=== PATIENT | male | born 1975 | race Caucasian/White ===

== ENCOUNTER 2025-04-25 18:03 | Inpatient (IN) ==
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
[2025-04-25] MEDS: ACETAMINOPHEN 1,000 MG/100 ML VIAL IV STA (18:39)
[2025-04-25] MEDS: SODIUM CHLORIDE 0.9% 1,000 ML IV ONE (18:40)
[2025-04-25] MEDS: OPTIRAY 320 100ml IV ONE (18:41)
[2025-04-25 18:42] LABS: Hematocrit (blood only) 43.6 % (42.0-52.0); Hemoglobin 15.6 g/dl (14.0-18.0); Immature Granulocytes # (auto) 0.07 K/uL (0.01-0.20); Immature Granulocytes % (auto) 0.4 %; Mean Corpuscular Hemoglobin 32.2 pg (25.0-34.0); Mean Corpuscular Volume 89.9 fL (80.0-100.0); Platelet Count 267 K/uL (130-400); RDW Standard Deviation 38.7 fL (36.4-46.3); Red Blood Count 4.85 M/uL (4.70-6.10); White Blood Count 16.04 K/ul (4.8-10.8)
--- NOTE | 2025-04-25 18:42 | CT Scan Report ---
Clinical History: Trauma. Technique: Axial computed tomography images were obtained of the brain from the vertex to the skull base without intravenous contrast. Findings: There is no sign of intracranial hemorrhage. There is normal berrios-white matter differentiation with no sign of acute or old infarction. No midline shift or other form of herniation is identified. There is no hydrocephalus. No obvious mass lesion is seen on this noncontrast examination. The visualized portions of the orbits and paranasal sinuses appear unremarkable. The mastoid air cells appear clear Impression: Unremarkable noncontrast CT of the brain Electronically signed by Alton Henley 04-25-2025 6:41 PM
--- NOTE | 2025-04-25 18:51 | CT Scan Report ---
Clinical history: Trauma Technique: Axial computed tomography images were obtained of the cervical spine without intravenous contrast. Sagittal and coronal reconstructions were obtained Findings: No definite fracture is identified. A lucency within the left aspect of the C2 vertebral body on image 20 of the coronal reconstructions may be due to a prominent nutrient vessel. No listhesis is seen. No focal osseous lesion is evident. The atlantoaxial articulation appears unremarkable. At C2-3, no disc herniation is identified. There is no spinal stenosis. The neural foramen are patent At C3-4, there is spinal stenosis due to a disc bulge and a central disc protrusion. There is left greater than right neural foramen narrowing that may affect the left C4 nerve root At C4-5, there is spinal stenosis due to a disc bulge and a central disc protrusion. There is bilateral neural foramen narrowing that may affect the exiting C5 nerve roots At C5-6, there is mild spinal stenosis due to a disc bulge and a suspected central to right paracentral disc protrusion. There is right neural foramen narrowing that may affect the right C6 nerve root At C6-7, there is a mild disc bulge. There is no spinal stenosis. The neural foramen are patent At C7-T1,no disc herniation is identified. There is no spinal stenosis. The neural foramen are patent The lung apices appear clear. The visualized soft tissues of the neck appear unremarkable. No foreign body is seen There is intravascular air. There also appears to be some extraluminal air adjacent to the left clavicle Impression: 1. No definite cervical spine fracture 2. Pockets of air in the soft tissues adjacent to the left clavicle, which could be due to penetrating injury or other trauma. Chest CT could be obtained for further evaluation 3. Spinal stenosis from C3-4 through C5-6 4. Left C3-4, bilateral C4-5, and right C5-6 neural foramen narrowing, which may affect the exiting nerve roots ACT 112: Positive. There are findings on this exam that require communication between the performing entity and the patient following Patient Test Result Information Act ([place] ACT 112) guidelines. Electronically signed by Alton Henley 04-25-2025 6:50 PM
--- NOTE | 2025-04-25 18:54 | CT Scan Report ---
Clinical History: Trauma Technique: Axial computed tomography images were obtained of the abdomen and pelvis after the administration of intravenous contrast. No prior CT is available for comparison. Findings: The liver is overall of normal size, attenuation, and contour with no sign of cirrhosis or significant fatty infiltration. No liver mass lesion is seen. The portal vein is patent. The gallbladder appears unremarkable. No bile duct dilatation is noted. The spleen is of normal size. No focal splenic lesion is evident. The pancreas appears normal with no sign of acute or chronic pancreatitis and no mass lesion noted. The pancreatic duct is of normal caliber. The adrenal glands appear unremarkable. No definite renal or proximal ureteral calculi are seen on this contrast-enhanced study. There is no hydronephrosis or perinephric stranding. No renal mass lesion is identified. The aorta is of normal caliber. There are small lymph nodes in the central mesentery with mild surrounding haziness. This may be due to mesenteric panniculitis. No overt abdominal adenopathy is seen. The stomach appears normal. There is no sign of small bowel obstruction. The colon appears unremarkable. The appendix appears normal also. No free intraperitoneal fluid or air is identified. No distal ureteral or bladder calculi are seen. No bladder mass lesion is evident. The iliac arteries are of normal caliber. No pelvic adenopathy is noted. There are small bilateral inguinal hernias containing only fat. No fracture is identified. No focal osseous lesion is seen Impression: 1. No definite sign of abdominal organ injury after trauma 2. Suspected mesenteric panniculitis Electronically signed by Alton Henley 04-25-2025 6:54 PM
--- NOTE | 2025-04-25 18:58 | CT Scan Report ---
Clinical history: Trauma Technique: Axial computed tomography images were obtained of the chest after the administration of intravenous contrast Findings: There is a small left pneumothorax, approximately 5% in size. There is dependent subsegmental atelectasis in both lower lobes There is no pleural effusion or right pneumothorax. There is no sign of pulmonary fibrosis or other diffuse interstitial process. No endobronchial lesion is seen There is no mediastinal, hilar, or axillary adenopathy. The thoracic aorta appears unremarkable with no sign of aneurysm or dissection. There is no pericardial effusion There is an acute mildly displaced fracture of the left anterior second rib. There is a suspected nondisplaced fracture of the left anterior third rib. There is adjacent chest wall air Impression: 1. Small left pneumothorax 2. Acute fractures of the left second and third ribs, with adjacent chest wall air ACT 112: Positive. There are findings on this exam that require communication between the performing entity and the patient following Patient Test Result Information Act ([place] ACT 112) guidelines. Electronically signed by Alton Henley 04-25-2025 6:57 PM
[2025-04-25 18:59] LABS: Alanine Aminotransferase 23.0 U/L (7-52); Albumin Globulin Ratio 1.4 (0.9-2); Alkaline Phosphatase 63.0 U/L (34-104); Anion Gap 14.0 (3-11); Bilirubin,Total 1.0 mg/dl (0.2-1.0); Blood Urea Nitrogen 22.0 mg/dl (6-23); Calcium 9.9 mg/dl (8.6-10.3); Carbon Dioxide 25.0 mmol/L (21-32); Chloride 102.0 mmol/L (98-107); Creatine Kinase 266.0 U/L (30-223); Creatinine Clr Calc Pharmacy 67.5 ml/min; Globulin 3.4 gm/dl (2.5-4.0); Glucose 108.0 mg/dl (70-99(Fasting)); Lipase 23.0 U/L (11-82); Potassium 4.6 mmol/L (3.5-5.1); Sodium 141.0 mmol/L (136-145); Total Protein 8.0 gm/dl (6.0-8.3)
--- NOTE | 2025-04-25 19:01 | CT Scan Report ---
Clinical history: Trauma Technique: Axial computed tomography images were obtained of the thoracic spine without intravenous contrast. Sagittal and coronal reconstructions were obtained Findings: There is mild deformity of the anteroinferior aspect of the T7 vertebral body, with the loss of to 10% of the vertebral body height. No other definite fracture is identified. There is multilevel Schmorl's node formation. There is mild scoliosis. No listhesis is seen. No focal osseous lesion is evident. There is no definite sign of osteomyelitis No definite disc herniation is seen at any level. There is no apparent spinal stenosis or definite nerve root compression Impression: 1. Mild T7 compression fracture of indeterminate age 2. Scoliosis ACT 112: Positive. There are findings on this exam that require communication between the performing entity and the patient following Patient Test Result Information Act ([place] ACT 112) guidelines. Electronically signed by Alton Henley 04-25-2025 7:01 PM
--- NOTE | 2025-04-25 19:05 | CT Scan Report ---
Clinical history: Trauma Technique: Axial computed tomography images were obtained of the lumbar spine after the administration of intravenous contrast. Sagittal and coronal reconstructions were obtained Findings: No fracture is identified. There is 2 mm of retrolisthesis of L4 on L5. No focal osseous lesion is evident. There is no definite sign of osteomyelitis At L1-2, no disc herniation is identified. There is no spinal stenosis. The neural foramen are patent At L2-3, there is a mild disc bulge. There is no spinal stenosis. The neural foramen are patent At L3-4, there is a disc bulge without spinal stenosis. There is mild bilateral neural foramen narrowing At L4-5, there is mild spinal stenosis due to a disc bulge and a suspected central disc protrusion. There is mild bilateral neural foramen narrowing At L5-S1, there is a broad-based central to left paracentral disc protrusion. There is no spinal stenosis. There is mild bilateral neural foramen narrowing The visualized soft tissues of the abdomen and pelvis appear unremarkable Impression: 1. No definite lumbar spine fracture 2. Mild retrolisthesis at L4-5 3. Spinal stenosis at L4-5 ACT 112: Positive. There are findings on this exam that require communication between the performing entity and the patient following Patient Test Result Information Act ([place] ACT 112) guidelines. Electronically signed by Alton Henley 04-25-2025 7:04 PM
[2025-04-25 19:16] LABS: INR 1.0 (0.9-1.1); Partial Thromboplastin Time 23 Seconds (21-31); Prothrombin Time 11.1 Seconds (9.0-12.0)
--- NOTE | 2025-04-25 19:22 | XRay Report ---
One view of the pelvis is submitted for review. Findings: No fracture or dislocation is seen. No significant arthritic changes are noted. No other osseous abnormality is identified. There are no radiopaque foreign bodies. There is excreted contrast within the urinary bladder Impression: Unremarkable pelvic radiograph Electronically signed by Alton Henley 04-25-2025 7:21 PM
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
--- NOTE | 2025-04-25 21:39 | XRay Report ---
Exam(s): XR CXR 1 VIEW EXAM: XR Chest, 1 View CLINICAL HISTORY: Reason for exam: assess pneumothorax. TECHNIQUE: Frontal view of the chest. COMPARISON: 04/25/2025 at 6:01 p.m. FINDINGS: Lungs: Lungs are somewhat underinflated. No acute focal infiltrate or consolidation is seen. Pleural space: Unremarkable. No pneumothorax. Heart: Unremarkable. No cardiomegaly. Mediastinum: Unremarkable. Normal mediastinal contour. Bones/joints: Unremarkable. No acute fracture. IMPRESSION: Lungs are somewhat underinflated. No acute focal infiltrate or consolidation is seen. No pneumothorax identified. Electronically signed by: Mike Reyes MD 04/25/25 21:38 PM
[2025-04-25] MEDS ORDERED: ACETAMINOPHEN 325 MG TAB PO PRN (22:28)
[2025-04-25] MEDS: SODIUM CHLORIDE 0.9% 1,000 ML IV SCH (22:38)
[2025-04-25] MEDS: HYDROmorphone INJ 0.5 MG/0.5 ML SYR IV PRN (22:38)
[2025-04-26 05:44] LABS: Hematocrit (blood only) 38.3 % (42.0-52.0); Hemoglobin 13.2 g/dl (14.0-18.0); Immature Granulocytes # (auto) 0.03 K/uL (0.01-0.20); Immature Granulocytes % (auto) 0.3 %; Mean Corpuscular Hemoglobin 32.1 pg (25.0-34.0); Mean Corpuscular Volume 93.2 fL (80.0-100.0); Platelet Count 193 K/uL (130-400); RDW Standard Deviation 41.6 fL (36.4-46.3); Red Blood Count 4.11 M/uL (4.70-6.10); White Blood Count 11.00 K/ul (4.8-10.8)
[2025-04-26 05:59] LABS: Anion Gap 6.0 (3-11); Blood Urea Nitrogen 20.0 mg/dl (6-23); Calcium 8.3 mg/dl (8.6-10.3); Carbon Dioxide 27.0 mmol/L (21-32); Chloride 106.0 mmol/L (98-107); Creatinine Clr Calc Pharmacy 87.2 ml/min; Glucose 115.0 mg/dl (70-99(Fasting)); Magnesium 2.1 mg/dl (1.7-2.4); Potassium 4.5 mmol/L (3.5-5.1); Sodium 139.0 mmol/L (136-145)
--- NOTE | 2025-04-26 08:03 | XRay Report ---
EXAM: XR chest 1V portable CLINICAL HISTORY: pneumothorax TECHNIQUE: An X-ray image of the chest is obtained in 1 AP projection. COMPARISON: No prior studies are available for comparison. FINDINGS: Pulmonary Parenchyma: Thin crescent lucent area in the left lung apex, suspected to represent pneumothorax. Bilateral prominent vascular markings could be due to pulmonary congestion. No evidence of consolidation, collapse, or focal opacities. No pulmonary nodules are identified. Mild blunting of left CP angle could be due to mild pleural effusion or pleural thickening. Heart and Mediastinum: Heart size and shape are normal. No mediastinal widening or masses. No hilar or mediastinal lymphadenopathy. Bony Thorax: Bony thorax appears intact without fractures or deformities. Soft Tissues: Soft tissues overlying the chest wall are unremarkable. IMPRESSION: 1. Thin crescent lucent area in the left lung apex, suspected to represent pneumothorax. 2. Mild blunting of left CP angle could be due to mild pleural effusion or pleural thickening. Electronically signed by Jeffrey Liu 04-26-2025 08:03 AM
[2025-04-26] MEDS: ROSUVASTATIN CALCIUM 5 MG TAB PO SCH (08:32)
[2025-04-26] MEDS: CETIRIZINE HCL 10 MG TABLET PO SCH (08:32)
[2025-04-26] MEDS: DEXTROAMPHETAMINE/AMPHETAMIME IR 5 MG TAB PO SCH (08:33)
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
[2025-04-26] MEDS: MoRPHine SULFATE 2 MG/ML CARP IV PRN (10:55)
[2025-04-26] MEDS: IBUPROFEN 600 MG TAB PO SCH (10:55)
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
[2025-04-26] MEDS: LIDOCAINE 5% 1 PATCH TD SCH (12:02)
--- NOTE | 2025-04-26 13:25 | XRay Report ---
XR chest 1V portable CLINICAL HISTORY: f/u pneumo COMPARISON STUDY: Chest CT April 25, 2025. Chest radiograph performed earlier today. FINDINGS: Low lung volumes are noted. A small left apical pneumothorax with pleural separation of 1 c m is unchanged. A small amount of associated pneumomediastinum is present. Left-sided rib fractures a re better depicted on prior chest CT. Bibasilar opacities are noted. Cardiomediastinal silhouette is stable. IMPRESSION: 1. No change in a small left apical pneumothorax. 2. Bibasilar opacities which favor atelectasis. ACT 112: Negative or not required by law. Electronically signed by: Sukhdeep Conway M.D. 04/26/2025 1:23 PM
[2025-04-26] MEDS: POLYETHYLENE (MIRALAX) 17 GM PACK PO SCH (14:01)
[2025-04-26] MEDS: BENZONATATE 100 MG CAPSULE PO SCH (14:05)
[2025-04-26] MEDS: REMOVE LIDODERM PATCH SCH (20:50)
[2025-04-26 20:59] LABS: Appearance Urine Clear (Clear); Glucose Urine UA Negative (Negative)
[2025-04-26] MEDS ORDERED: REMOVE LIDODERM PATCH SCH (21:00)
[2025-04-27 07:57] LABS: Hematocrit (blood only) 34.7 % (42.0-52.0); Hemoglobin 12.1 g/dl (14.0-18.0); Immature Granulocytes # (auto) 0.02 K/uL (0.01-0.20); Immature Granulocytes % (auto) 0.3 %; Mean Corpuscular Hemoglobin 32.6 pg (25.0-34.0); Mean Corpuscular Volume 93.5 fL (80.0-100.0); Platelet Count 154 K/uL (130-400); RDW Standard Deviation 41.8 fL (36.4-46.3); Red Blood Count 3.71 M/uL (4.70-6.10); White Blood Count 7.18 K/ul (4.8-10.8)
[2025-04-27 08:28] LABS: Alanine Aminotransferase 15.0 U/L (7-52); Albumin Globulin Ratio 1.6 (0.9-2); Alkaline Phosphatase 41.0 U/L (34-104); Anion Gap 3.0 (3-11); Bilirubin,Total 1.0 mg/dl (0.2-1.0); Blood Urea Nitrogen 15.0 mg/dl (6-23); Calcium 8.0 mg/dl (8.6-10.3); Carbon Dioxide 29.0 mmol/L (21-32); Chloride 106.0 mmol/L (98-107); Creatinine Clr Calc Pharmacy 103.0 ml/min; Globulin 2.2 gm/dl (2.5-4.0); Glucose 95.0 mg/dl (70-99(Fasting)); Potassium 4.1 mmol/L (3.5-5.1); Sodium 138.0 mmol/L (136-145); Total Protein 5.8 gm/dl (6.0-8.3)
--- NOTE | 2025-04-27 08:42 | XRay Report ---
EXAM: XR chest 1V portable CLINICAL HISTORY: FOLLOW UP. TECHNIQUE: An X-ray image of the chest is obtained in AP projection. COMPARISON: 04/26/2025. FINDINGS: Pulmonary Parenchyma: Unchanged the possible left small pneumothorax involving less than 10% of the left hemothorax. Lungs are clear bilaterally. No evidence of consolidation, collapse, or focal opacities. No pulmonary nodules are identified. No evidence of pleural effusion or pleural thickening. Heart and Mediastinum: Heart size and shape are normal. No mediastinal widening or masses. No hilar or mediastinal lymphadenopathy. Bony Thorax: The bony thorax appears intact without fractures or deformities. Soft Tissues: Left lateral neck soft tissue surgical emphysema noted. IMPRESSION: 1. Unchanged the possible left small pneumothorax involving less than 10% of the left hemothorax. 2. Left lateral neck soft tissue surgical emphysema noted Electronically signed by Jeffrey Liu 04-27-2025 08:41 AM
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
[2025-04-28 04:10] VITALS: O2SAT 93
[2025-04-28 07:33] VITALS: BP 109/72; PULSE 91; RESP 20; TEMP 98.1
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
--- NOTE | 2025-04-29 10:49 | Coding Query ---
To promote full compliance with coding requirements relating to patient care, provider participation is requested in all cases of frame aligner uncertainty. Please assist us with the question(s) below: Coding Question(s): The diagnosis below was documented in the H&P then subsequently fell off all further documentation. Please indicate if it is still a possible diagnosis or ruled out. Physician's Response(s): POSSIBLE CONCUSSION ( X ) Diagnosed and POA ( ) Diagnosed and not POA ( ) Ruled out ( ) Other (please specify) MTDD
== END 2025-04-28 12:15 | disposition home or self-care (01) | DRG 552 ==
LOC: ED 18:03 → 4W 21:10